=== PATIENT | female | born 1990 | race Caucasian/White ===

== ENCOUNTER 2017-11-07 09:55 | Emergency (ER) | payer SELFPAY, OTHER ==
[2017-11-07 10:12] LABS: URINE BLOOD (Dip) POC 1+ (NEGATIVE); URINE GLUCOSE (Dip) POC Negative (NEGATIVE); URINE KETONES (Dip) POC Negative (NEGATIVE); URINE LEUKOCYTE EST (Dip) POC Trace (NEGATIVE); URINE NITRITE (Dip) POC Negative (NEGATIVE); URINE TOTAL PROTEIN POC Negative (NEGATIVE)
[2017-11-07 10:12] LABS: URINE PH (Dip) POC 5.5 (5.0-8.5)
[2017-11-07] MEDS: KETOROLAC 60 MG INJ IM (10:30)
[2017-11-07] MEDS: PHENAZOPYRIDINE 100 MG TAB PO (11:19)
[2017-11-07] MEDS: CEPHALEXIN 500 MG CAP PO (11:19)
== END 2017-11-07 12:02 | disposition home or self-care (01) ==
LOC: FTE 09:55
DX: N39.0 Urinary tract infection, site not specified (principal)
CPT/HCPCS: 81003; 81025; 96372; 99284-25